=== PATIENT | male | born 1990 | race Caucasian/White ===

== ENCOUNTER 2024-12-03 11:24 | Emergency (ER) | payer OTHER ==
[2024-12-03] MEDS: Aspirin 81 MG Tab.Chew PO ONE (11:56)
[2024-12-03] MEDS: Sodium Chloride 0.9% 10 ML Syringe FLUSH PRN (11:57)
[2024-12-03 12:07] LABS: BLOOD UREA NITROGEN,BUN 6 mg/dL (7-18); BUN/CREATININE RATIO 4.3 (9-20); CALCIUM 9.6 mg/dL (8.6-10.2); CARBON DIOXIDE,CO2 30 mmol/L (21-32); CHLORIDE,CL 100 mmol/L (100-110); CREATININE 1.4 mg/dL (0.70-1.30); EST CRCL DRUG DOSING (CG) 86.44 mL/min; ESTIMATED GFR 68 mL/min (>60); GLUCOSE RANDOM 103 mg/dL (80-116); POTASSIUM,K 3.3 mmol/L (3.5-5.3); SODIUM,NA 139 mmol/L (135-145)
[2024-12-03 12:09] LABS: BASOPHILS ABSOLUTE AUTO 0.1 x10-3/uL (0.0-0.3); BASOPHILS PERCENT AUTO 0.9 % (0.3-3.8); EOSINOPHILS ABSOLUTE AUTO 0.1 x10-3/uL (0.0-0.6); EOSINOPHILS PERCENT AUTO 1.9 % (0.1-6.8); HEMATOCRIT 50.2 % (38.3-50.1); HEMOGLOBIN 17.4 g/dL (12.9-17.7); MEAN CORPUSCULAR HEMOGLOBIN 32.6 pg (27.0-33.3); MEAN CORPUSCULAR HGB CONC 34.7 g/dL (28.7-35.3); MEAN PLATELET VOLUME 7.3 fL (6.7-11.0); MONOCYTES ABSOLUTE AUTO 0.5 x10-3/uL (0.0-1.2); MONOCYTES PERCENT AUTO 8.2 % (5.5-15.2); NEUTROPHILS ABSOLUTE AUTO 3.7 x10-3/uL (1.7-6.9); PLATELET COUNT,PLT 279 x10(3)uL (117-477); RED BLOOD CELL COUNT 5.33 x10(6)uL (3.90-5.90); RED CELL DISTRIBUTION WIDTH 12.9 % (12.4-15.0); WHITE BLOOD CELL COUNT,WBC 6.4 x10-3/uL (3.2-10.1)
[2024-12-03 12:12] LABS: A/G RATIO 1.3; ALANINE AMINOTRANSFERASE,ALT 31 U/L (12-36); ALBUMIN 4.5 g/dL (3.5-5.2); ALKALINE PHOSPHATASE 68 IU/L (56-112); ASPARTATE AMNIOTRANSFERASE,AST 20 IU/L (5-25); PROTEIN TOTAL,TP 7.9 g/dL (6.0-8.0)
[2024-12-03] MEDS: Potassium Chloride 20 MEQ Tab.ER PO ONE (13:20)
[2024-12-03] MEDS: Sodium Chloride 0.9% 1,000 ML IV ONE (13:21)
== END 2024-12-03 14:35 | disposition home or self-care (01) ==
LOC: FB.ED 11:24
DX: T43.611A Poisoning by caffeine, accidental (unintentional), initial encounter (principal); I10 Essential (primary) hypertension; R07.9 Chest pain, unspecified; Z79.899 Other long term (current) drug therapy
CPT/HCPCS: 36415; 71045; 80053; 84484; 85025; 85379; 93005; 96360; 99285; A9270; J7030